=== PATIENT | female | born 1945 | race Caucasian/White ===

== ENCOUNTER 2018-10-08 21:37 | Inpatient (IN) | payer MEDICARE, OTHER ==
[~2018-10-08] VITALS: Ht 154.9 cm; Wt 55.1 kg
--- NOTE | 2018-10-08 21:45 | NUR ---
FEELING SOB W/ LIP SWELLING, NUMBNESS S/P POSSIBLE ALLERGIC RXN X 30MIN AGO TOOK BENADRYL 2 TAB [employer]. PLACED ON 15L NON-REBREATHER AND HOOKED TO MONITOR. AT BEDSIDE. MADE COMFORTABLE AND READY FOR EVAL.
[2018-10-08] MEDS ORDERED: EPINEPHRINE (1:1000) 1 MG/ML AMPUL ONE (21:48)
[2018-10-08] MEDS ORDERED: methylPREDNISolone SOD SUCC 125 MG/2ML VIAL ONE (21:49)
[2018-10-08] MEDS: EPINEPHRINE (1:1000) MDV 30 MG/30ML VIAL SUBCUT ONE (21:51)
[2018-10-08] MEDS ORDERED: IV NS 0.9% 1,000 ML BAG IV ONE (22:00)
[2018-10-08] MEDS ORDERED: methylPREDNISolone SOD SUCC 125 MG/2ML VIAL IV ONE (22:00)
[2018-10-08 22:25] LABS: BASOPHILS % (AUTO) 0.3 % (0.0-2.0); EOSINOPHILS % (AUTO) 1.1 % (0.0-6.0); HEMATOCRIT 41 % (33-45); HEMOGLOBIN 14.3 g/dL (11.5-14.8); LYMPHOCYTES # (AUTO) 1.8 /CMM (0.8-4.8); LYMPHOCYTES % (AUTO) 22.8 % (20.0-44.0); MEAN CORPUSCULAR HGB CONC 35 g/dl (31.0-36.0); MEAN CORPUSCULAR VOLUME 96 fL (82-100); MONOCYTES # (AUTO) 0.4 /CMM (0.1-1.30); MONOCYTES % (AUTO) 5.7 % (2.0-12.0); NEUTROPHILS # (AUTO) 5.4 /CMM (1.8-8.9); NEUTROPHILS % (AUTO) 70.1 % (43.0-81.0); PLATELET COUNT (AUTO) 325 /CMM (150-450); RED BLOOD CELL COUNT(AUTO) 4.31 MIL/uL (4.0-5.2); WHITE BLOOD COUNT (AUTO) 7.7 K/uL (4.3-11.0)
[2018-10-08] MEDS ORDERED: diphenhydrAMINE HCL 50 MG/ML VIAL ONE (22:25)
--- NOTE | 2018-10-08 22:25 | NUR ---
PT "FEELING ITCHY" AGAIN. NOTIFIED
[2018-10-08] MEDS ORDERED: diphenhydrAMINE HCL 50 MG/ML VIAL IV ONE (22:30)
[2018-10-08 22:41] LABS: CALCIUM, SERUM 8.8 mg/dL (8.5-10.1); CARBON DIOXIDE 32 mmol/L (21-32); CHLORIDE 105 mmol/L (98-107); CREATININE 0.8 mg/dL (0.6-1.3); GLUCOSE 139 mg/dL (74-106); SODIUM SERUM 142 mmol/L (136-145); UREA NITROGEN, BLOOD 22 mg/dL (7-18)
[2018-10-08 22:45] LABS: ALANINE AMINOTRANSFERASE 27 U/L (12-78); ALBUMIN 3.5 g/dL (3.4-5.0); ALKALINE PHOSPHATASE 54 U/L (46-116); ASPARTATE AMINOTRANSFERASE 15 U/L (15-37); BILIRUBIN,TOTAL 0.4 mg/dL (0.2-1.0); TOTAL PROTEIN, SERUM 6.8 g/dL (6.4-8.2)
--- NOTE | 2018-10-08 23:28 | NUR ---
Patient is resting comfortably in bed. Easily aroused. VSS
--- NOTE | 2018-10-08 23:58 | NUR ---
Report given to HECTOR Heredia for pt [facility] admission to tele 308-2. pt resp even & unlabored, denies any pain, no sob w/ nad noted.
[2018-10-09 00:35] VITALS: BP 113/58
[2018-10-09] MEDS ORDERED: IV NS 0.9% 1,000 ML IV PRN (00:48)
[2018-10-09 01:00] VITALS: BP 113/58
[2018-10-09] MEDS ORDERED: HYDROCODONE/APAP 5/325MG 1 EACH TABLET PO PRN (01:00)
[2018-10-09] MEDS ORDERED: MAGNESIUM HYDROXIDE 30 ML UDC PO PRN (01:00)
[2018-10-09] MEDS ORDERED: Z GUARD REMEDY 2 OZ OINT TP PRN (01:00)
[2018-10-09] MEDS ORDERED: MAG HYDROX/AL HYDROX/SIMETH 30 ML UDC PO PRN (01:00)
[2018-10-09] MEDS ORDERED: ACETAMINOPHEN 325 MG TABLET PO PRN (01:00)
[2018-10-09] MEDS ORDERED: ONDANSETRON HCL/PF 4 MG/2 ML VIAL IVP PRN (01:00)
[2018-10-09] MEDS ORDERED: diphenhydrAMINE HCL 50 MG/ML VIAL IV PRN (01:00)
[2018-10-09] MEDS ORDERED: ZOLPIDEM TARTRATE 5 MG TABLET PO PRN (01:00)
--- NOTE | 2018-10-09 01:00 | NUR ---
RN NOTES RECEIVED PT. FROM ER WITH DX. OF ANAPHYLAXIS . A/OX4, AMBULATORY, AT BEDSIDE, SR ON TELE MONITOR HR-66, NOTICED ALL HER FINGERS ARE SWOLLEN, DENIES PAIN, NO SOB, ADMISSION INSTRUCTION RENDERED, CALL LIGHT WITHIN REACH, [id number], CONTINUE TO MONITOR
[2018-10-09] MEDS ORDERED: ZOLPIDEM TARTRATE 10 MG TABLET PO PRN (01:30)
--- NOTE | 2018-10-09 01:30 | NUR ---
RN NOTES PT. CANNOT REMEMBER THE DOSE OF HER DAILY MEDICATION.. ASKED THE PT. IF SHE CAN CALL HER TO BRING HER MEDICATION IN THE MORNING SO THE DOCTOR CAN ORDER IT. PT STATED " SHE CAN TAKE IT WHEN SHE GETS HOME"
--- NOTE | 2018-10-09 01:30 | NUR ---
RN NOTES COMPLAINED OF DYSPEPSIA- MAALOX 30 ML PO GIVEN ORDERED
[2018-10-09 04:00] VITALS: BP 120/80
[2018-10-09 04:33] LABS: BASOPHILS % (AUTO) 0.5 % (0.0-2.0); EOSINOPHILS % (AUTO) 7.5 % (0.0-6.0); HEMATOCRIT 32 % (33-45); HEMOGLOBIN 10.7 g/dL (11.5-14.8); LYMPHOCYTES # (AUTO) 1.6 /CMM (0.8-4.8); LYMPHOCYTES % (AUTO) 28.3 % (20.0-44.0); MEAN CORPUSCULAR HGB CONC 34 g/dl (31.0-36.0); MEAN CORPUSCULAR VOLUME 90 fL (82-100); MONOCYTES # (AUTO) 0.5 /CMM (0.1-1.30); MONOCYTES % (AUTO) 9.5 % (2.0-12.0); NEUTROPHILS % (AUTO) 54.2 % (43.0-81.0); PLATELET COUNT (AUTO) 181 /CMM (150-450); RED BLOOD CELL COUNT(AUTO) 3.53 MIL/uL (4.0-5.2); WHITE BLOOD COUNT (AUTO) 5.6 K/uL (4.3-11.0)
[2018-10-09 04:51] LABS: CALCIUM, SERUM 8.8 mg/dL (8.5-10.1); CARBON DIOXIDE 30 mmol/L (21-32); CHLORIDE 105 mmol/L (98-107); CREATININE 0.8 mg/dL (0.6-1.3); GLUCOSE 115 mg/dL (74-106); MAGNESIUM 1.9 mg/dL (1.8-2.4); POTASSIUM 3.4 mmol/L (3.5-5.1); SODIUM SERUM 141 mmol/L (136-145); UREA NITROGEN, BLOOD 16 mg/dL (7-18)
[2018-10-09 05:16] LABS: CHOLESTEROL 214 mg/dL (<200); HDL CHOLESTEROL 90 mg/dL (40-60); LDL 111 mg/dL (0-99); THYROID STIMULATING HORMONE 3.006 uIU/mL (0.358-3.74); TRIGLYCERIDES 37 mg/dL (30-150)
--- NOTE | 2018-10-09 07:30 | NUR ---
MS RN RECEIVED ON BED, AWAKE,ALERT,ORIENTED X4,NOT IN ANY FORM OF DISTRESS, RESPIRATIONS EVEN AND UNLABORED,NO SOB NOTED,LUNGS ARE CLEAR,ABDOMEN SOFT,POSITIVE BOWEL SOUNDS,DENIES PAIN AT THIS TIME,ALL NEEDS ATTENDED.
[2018-10-09 08:00] VITALS: BP 103/58
[2018-10-09] MEDS ORDERED: DIPH25CA83 PO (08:10)
[2018-10-09] MEDS ORDERED: EPIN0.1S2 IJ (08:10)
--- NOTE | 2018-10-09 08:10 | NUR ---
MS RN WAS SEEN BY DR. BUTLER W/ ORDER TO GO HOME TODAY.
[2018-10-09] MEDS ORDERED: METH4TAB17 PO (08:13)
[2018-10-09] MEDS ORDERED: LOSA100T31 PO (08:43)
[2018-10-09] MEDS ORDERED: AMLO5TAB9 PO (08:43)
[2018-10-09] MEDS ORDERED: GABA-534 PO (08:43)
[2018-10-09] MEDS ORDERED: PARO25TA15 PO (08:43)
[2018-10-09] MEDS ORDERED: ZOLP5TAB8 PO (08:43)
[2018-10-09] MEDS ORDERED: GALC120P SQ (08:58)
[2018-10-09] MEDS ORDERED: methylPREDNISolone SOD SUCC 125 MG/2ML VIAL IV SCH (09:00)
[2018-10-09] MEDS ORDERED: FAMOTIDINE (20 MG) 20 MG TABLET PO SCH (09:00)
--- NOTE | 2018-10-09 10:20 | NUR ---
ms rn patient's discharge instructions given and understood, went home accompanied by ,no distress noted.
== END 2018-10-09 09:45 | disposition home or self-care (01) | DRG 916 ==
LOC: ER 21:41 → TELE 10-09 00:14
PROVIDERS: ADMIT Hospitalist; ATTEND Student in an Organized Health Care Education/Training Program
DX: T78.09XA Anaphylactic reaction due to other food products, initial encounter (principal); I10 Essential (primary) hypertension; Z88.0 Allergy status to penicillin; E87.6 Hypokalemia; L29.9 Pruritus, unspecified; I95.9 Hypotension, unspecified; R73.9 Hyperglycemia, unspecified; R07.9 Chest pain, unspecified
CPT/HCPCS: 36415; 71045-TC; 80048-TC; 80053-TC; 80061-TC; 83735-TC; 84100-TC; 84443-TC; 84484-TC; 85025-TC; 87081-TC; G0378; J0171; J1200; J2930; J7030